=== PATIENT | male | born 1945 | race Caucasian/White ===

== ENCOUNTER → 2017-03-30 | Outpatient (CLI) | payer SELFPAY ==
[2013-07-07 12:30] VITALS: BP 120/70
--- NOTE | 2017-03-30 15:07 | CT ---
HISTORY: Family history, hypertension, dyspnea, chest pain Cardiac calcium scoring. Technique: Multiple axial images of the chest were obtained on a [address] from the aortic arch to the base of the heart with noncontrast prospective gating.AEC was utilized. Findings: A total calcium score of 181 is observed. The score results in moderate to high likelihood of coron steven events given the age and sex matched cohort analysis with definite, at least moderate, atheroscl erotic plaque present. The patient is between the 25th and 50th percentile for age and sex. There is an incidental 2 mm subpleural left lower lobe pulmonary nodule which is most likely postinf lammatory and for which no additional followup is necessary in a low risk patient, but in the settin g of a high risk patient, [address] chest without contrast should be considered. IMPRESSION: Coronary calcium score and pulmonary nodule as above. Reported By:
== END ==
LOC: RAD 09:13
PROVIDERS: ATTEND Internal Medicine
DX: Z13.6 Encounter for screening for cardiovascular disorders (principal)

== ENCOUNTER → 2017-05-14 | Outpatient (CLI) | payer OTHER, BC ==
[2013-07-07 12:30] VITALS: BP 120/70
[~2017-05-14] MED LIST: NS 100 ML IV 100 ML IV ONE
[2017-05-14 08:55] LABS: CREATININE 1.45 mg/dL (0.70-1.30)
--- NOTE | 2017-05-14 10:32 | CT ---
HISTORY: Left lower quadrant pain Study: CT abdomen and pelvis with intravenous infusion of 100 milliliters Omnipaque 350. Also with or al contrast Comparison: None Technique: Multiple axial images of the abdomen and pelvis were obtained from the lung bases to the pubic symphy sis with the administration of IV contrast. Sagittal and coronal reformations were provided. Findings: The visualized portions of the lung bases are unremarkable. There are multiple renal cysts but there is no hydronephrosis or renal calculus. The largest cyst is in the left kidney laterally measuring 8 .9 centimeters AP diameter. The largest cyst of the right kidney is off the lower pole measuring 4.73 centimeters AP diameter. The liver and spleen and pancreas and adrenal glands are unremarkable.. The gallbladder is unremarkable in its CT appearance. No significant mesenteric lymphadenopathy or stra nding can be observed. No free fluid or free air is seen within the abdomen. The appendix is normal . No bowel wall thickening or bowel dilatation is present. The colon is unremarkable. Specifically, there is no diverticulosis noted within the sigmoid colon. The prostate is enlarged measuring 5.6 ce ntimeters transverse diameter and there is a prostatic nodule elevating the base of the bladder. Ther e is no bladder wall thickening. There is coarse in striated trabecula in the L4 vertebral body. IMPRESSION: 1. Multiple renal cysts 2. Hemangioma of the L4 vertebra 3. No acute disease Reported By:
== END | disposition home or self-care (01) | DRG 392 ==
LOC: RAD 08:19
PROVIDERS: ATTEND Internal Medicine
DX: R10.32 Left lower quadrant pain (principal); Q61.02 Congenital multiple renal cysts; D18.09 Hemangioma of other sites; N40.0 Benign prostatic hyperplasia without lower urinary tract symptoms
CPT/HCPCS: 36415; 74177; 82565; 84520; A4222

== ENCOUNTER → 2017-05-24 | Outpatient (CLI) | payer OTHER, BC ==
[2013-07-07 12:30] VITALS: BP 120/70
[2017-05-24 09:33] LABS: BASOPHILS % (AUTO) 1.3 % (0.2-1.0); EOSINOPHILS # (AUTO) 0.1 x10^3/uL (0.0-0.2); HEMATOCRIT 43.6 % (42.0-54.0); HEMOGLOBIN 15.5 g/dL (13.5-18.0); LYMPHOCYTES % (AUTO) 26.6 % (21.0-51.0); MEAN CORPUSCULAR HEMOGLOBIN 32.4 pg (27.0-34.0); MEAN CORPUSCULAR HGB CONC 35.5 g/dL (33.0-35.0); MEAN CORPUSCULAR VOLUME 91.1 fL (80.0-100.0); MEAN PLATELET VOLUME 7.7 fL (7.4-11.0); MONOCYTES # (AUTO) 0.4 x10^3/uL (0.3-0.8); MONOCYTES % (AUTO) 11.4 % (0.0-13.0); NEUTROPHILS % (AUTO) 56.7 % (42.0-75.0); PLATELET COUNT 179 X10^3/uL (150.0-450.0); RED BLOOD COUNT 4.79 X10^6/uL (4.7-6.0); RED CELL DISTRIBUTION WIDTH 12.9 % (11.6-16.5); WHITE BLOOD COUNT 3.6 X10^3/uL (3.6-10.0)
[2017-05-24 09:57] LABS: ALANINE AMINOTRANSFERASE 29 Units/L (12-78); ALBUMIN 3.4 g/dL (3.4-5.0); ALKALINE PHOSPHATASE 89 Units/L (46-116); ASPARTATE AMINO TRANSFERASE 18 Units/L (15-37); BLOOD UREA NITROGEN 15 mg/dL (7-18); CALCIUM 9.4 mg/dL (8.5-10.1); CARBON DIOXIDE 29.7 mmol/L (21-32); CHLORIDE 108 mmol/L (98-107); COR NA(FOR HYPERGLY) 141 mmol/L (136-145); CREATININE 1.49 mg/dL (0.70-1.30); SODIUM 139 mmol/L (136-145); TOTAL PROTEIN 6.8 g/dL (6.4-8.2); eGFR BLACK RACES 60 (>60); eGFR NON BLACK RACES 49 (>60)
== END ==
LOC: LAB 09:10
PROVIDERS: ATTEND Internal Medicine Medical Oncology
DX: I82.591 Chronic embolism and thrombosis of other specified deep vein of right lower extremity (principal)
CPT/HCPCS: 36415; 80053; 85025